=== PATIENT | female | born 1960 | race Caucasian/White ===

== ENCOUNTER 2020-06-29 15:58 | Emergency (ER) | payer MEDICAID ==
[2020-06-29] MEDS ORDERED: LORazepam 0.5 MG Tab PO ONE (16:53)
--- NOTE | 2020-06-29 17:22 | EDM.PDOCBH ---
ED HPI GENERAL MEDICAL PROBLEM - General Chief Complaint: Behavioral/Psych Stated Complaint: [facility] Time Seen by Provider: 06/29/20 16:07 Source of Information: Reports: Patient History Limitations: Reports: No Limitations - History of Present Illness INITIAL COMMENTS - FREE TEXT/NARRATIVE: Pt is a 60 year old female who presents to the ER with c/o weakness and SOB. She was diagnosed with COVID yesterday and states that she has been in quarantine at [facility] since yesterday morning. She has had a mild cough and some nasal congestion for the last week. Her also has COVID and is currently hospitalized which is causing the patient increased anxiety. Pt expresses feeling "ignored and like she is not getting enough care" at [facility]. She states "I can't handle those 4 paulson anymore". She has concerns about her diabetes and the type of food she is receiving; however, this is not a new concern for her. She states that after being diagnosed with COVID she is "treated worse than an animal". She states that she opened her door to ask for some hot chocolate, and was yelled at to shut her door and that administration was send to her room. Prior to coming to ER, pt describes feeling like hear heart was beating fast and that she couldn't catch her breath. She states that she had to get out of her room and that coming to the ER was the only way she could get out. Headache Pain Score (Numeric/FACES): 3 - Related Data Allergies Allergy/AdvReac Type Severity Reaction Status Date / Time No Known Allergies Allergy Verified 06/29/20 17:37 Home Meds: Home Meds Alpha Lipoic Acid 600 mg PO DAILY 06/29/20 [History] Aspirin [Low Dose Aspirin EC] 81 mg PO DAILY 06/29/20 [History] Calcium Carbonate [Calcium] 1,200 mg PO DAILY 06/29/20 [History] Empagliflozin [Jardiance] 25 mg PO DAILY 06/29/20 [History] Fluticasone Propionate [Flonase] 16 gm .XX DAILY #1 bottle 06/29/20 [Rx] Glucosamine/D3/Boswellia Ely [Osteo Bi-Flex Caplet] 1 tab PO DAILY 06/29/20 [History] Iron 18 mg PO DAILY 06/29/20 [History] LORazepam [Ativan] 0.5 mg PO Q8H PRN #15 tab 06/29/20 [Rx] Liraglutide [Victoza] 1.2 mg SQ DAILY 06/29/20 [History] Losartan [Cozaar] 25 mg PO DAILY 06/29/20 [History] Magnesium 250 mg PO DAILY 06/29/20 [History] Multivitamin with Minerals [One Daily Plus Minerals] 1 tab PO DAILY 06/29/20 [History] Rosuvastatin [Crestor] 20 mg PO DAILY 06/29/20 [History] Sour Sears Extract [Tart Sears Extract] 1,200 mg PO DAILY 06/29/20 [History] metFORMIN HCl [Metformin HCl ER] 2,000 mg PO DAILY 06/29/20 [History] ED ROS GENERAL - Review of Systems Review Of Systems: See Below Constitutional: Reports: Fatigue. Denies: Fever, Chills, Weakness HEENT: Reports: No Symptoms Respiratory: Reports: Shortness of Breath. Denies: Wheezing, Cough Cardiovascular: Reports: Palpitations. Denies: Chest Pain, Dyspnea on Exertion, Lightheadedness, Syncope Endocrine: Reports: No Symptoms GI/Abdominal: Reports: No Symptoms : Reports: No Symptoms Musculoskeletal: Reports: No Symptoms Skin: Reports: No Symptoms Neurological: Reports: No Symptoms Psychiatric: Reports: Anxiety, Depression Hematologic/Lymphatic: Reports: No Symptoms Immunologic: Reports: No Symptoms ED EXAM, BEHAVIORAL HEALTH - Physical Exam Exam: See Below Exam Limited By: No Limitations General Appearance: Alert, Anxious, Other (tearful) Eye Exam: Bilateral Eye: Normal Inspection, PERRL Respiratory/Chest: No Respiratory Distress, Lungs Clear, Normal Breath Sounds, No Accessory Muscle Use, Chest Non-Tender Cardiovascular: Normal Peripheral Pulses, Regular Rate, Rhythm, No Edema, No Gallop, No JVD, No Murmur, No Rub GI/Abdominal: Normal Bowel Sounds, Soft, Non-Tender, No Organomegaly, No Distention, No Abnormal Bruit, No Mass Neurological: Alert, Normal Mood/Affect, CN II-XII Intact, Normal Cognition, Normal Gait, Normal Reflexes, No Motor/Sensory Deficits, Oriented x 3 Psychiatric: Alert, Normal Cognition, Oriented, Tearful, Other (anxious) Skin Exam: Warm, Dry, Intact, Normal color, No rash EKG INTERPRETATION EKG Date: 06/29/20 Time: 17:43 Rhythm: NSR Rate (Beats/Min): 94 [place]: Normal P-Wave: Present QRS: Normal ST-T: Normal QT: Normal Comparison: NA - No Prior EKG COURSE, BEHAVIORAL HEALTH COMP - Course Vital Signs: Last Vital Signs Temp 98.1 F 06/29/20 16:09 Pulse 98 06/29/20 16:09 Resp 18 06/29/20 16:09 BP 155/105 H 06/29/20 16:09 Pulse Ox 100 06/29/20 16:09 Orders, Labs, Meds: Laboratory Tests 06/29/20 06/29/20 06/29/20 Range/Units 17:12 17:12 17:12 WBC 5.60 (3.98-10.04) K/mm3 RBC 4.37 (3.98-5.22) M/mm3 Hgb 13.1 (11.2-15.7) gm/dl Hct 38.2 (34.1-44.9) % MCV 87.4 (79.4-94.8) fl MCH 30.0 (25.6-32.2) pg MCHC 34.3 (32.2-35.5) g/dl RDW Std Deviation 40.4 (36.4-46.3) fL Plt Count 267 (182-369) K/mm3 MPV 9.3 L (9.4-12.3) fl Neut % (Auto) 56.9 (34.0-71.1) % Lymph % (Auto) 30.7 (19.3-51.7) % [place] % (Auto) 9.6 (4.7-12.5) % Eos % (Auto) 2.3 (0.7-5.8) Baso % (Auto) 0.5 (0.1-1.2) % Neut # (Auto) 3.18 (1.56-6.13) K/mm3 Lymph # (Auto) 1.72 (1.18-3.74) K/mm3 [place] # (Auto) 0.54 H (0.24-0.36) K/mm3 Eos # (Auto) 0.13 (0.04-0.36) K/mm3 Baso # (Auto) 0.03 (0.01-0.08) K/mm3 Sodium 141 (136-145) mEq/L Potassium 4.1 (3.5-5.1) mEq/L Chloride 102 (98-107) mEq/L Carbon Dioxide 22 (21-32) mEq/L Anion Gap 21.1 H (5-15) BUN 14 (7-18) mg/dL Creatinine 1.2 H (0.55-1.02) mg/dL Est Cr Clr Drug Dosing TNP Estimated GFR (MDRD) 46 (>60) mL/min BUN/Creatinine Ratio 11.7 L (14-18) Glucose 182 H (74-106) mg/dL Calcium 9.4 (8.5-10.1) mg/dL Total Bilirubin 0.5 (0.2-1.0) mg/dL AST 14 L (15-37) U/L ALT 28 (14-59) U/L Alkaline Phosphatase 76 (46-116) U/L Troponin I < 0.017 (0.00-0.056) ng/mL C-Reactive Protein 0.3 (<1.0) mg/dL Total Protein 7.4 (6.4-8.2) g/dl Albumin 4.3 (3.4-5.0) g/dl Globulin 3.1 gm/dL Albumin/Globulin Ratio 1.4 (1-2) Medications Discontinued Medications Generic Name Dose Route Start Last Admin Trade Name Freq PRN Reason Stop Dose Admin Sodium Chloride 1,000 mls @ 999 mls/hr 06/29/20 17:56 06/29/20 18:09 Normal Saline IV 06/29/20 18:56 999 mls/hr NOW STA Administration Lorazepam 0.5 mg 06/29/20 16:53 06/29/20 17:10 Ativan PO 06/29/20 16:54 0.5 mg ONETIME ONE Administration Discharge vs Psych Eval/Treatment:: Pt is a 60 year old female who presents to the ER with c/o weakness and SOB. Patient is very anxious and tearful. She describes feeling trapped in her room. This is being exacerbated by her being hospitalized and her being alone. Discussed with patient that her feeling of palpitations and SOB are likely related to her high anxiety. After a long discussion with her, I explained that we will complete a medical workup including blood work, chest xray, and an EKG and if this is found to be normal, I will call and speak with the nursing staff at [facility] with regard to her concerns and see if they can work on a plan to get her more assistance and out of her room on occasion. Pt feels that if she could get out of her room a few times per day she would do much better. She did agree to taking a dose of Ativan now to help calm her. 06/29/20 18:22 Hematology was significant for anion gap elevated at 21.1, creatinine 1.2, glucose 182. Troponin and CRP were both negative. EKG was negative for any acute ischemia. Chest x-ray was found to be normal. Patient is much more calm after the Ativan. States that she does feel much more relaxed and less anxious. I did call and speak with the nurse at [facility], regarding patients concerns. Requested that if at all possible, pt he allowed to go outside a few times a day to help with her anxiety and feeling of being locked up. She stated that this may be able to be arranged and that they will work on coming up with a plan. I also discussed the patient's concerns regarding the food and she will work on a plan with regards to this. Pt's lab showed that she is dehydated; th erefore, I have ordered a 500 ml bolus of NS. Discussed with patient that communication is important and that if she is feeling anxious or that she needs extra help, she should make the nurses aware of her concerns. I will also write for a short prescription for Ativan to help her get through this time. She questioned if there is something that will help with her nasal congestion. I will recommend that she start Flonase twice daily. She is in agreement with this plan and expressed gratitude for our help. Discharge instrunctions as documented. Departure - Departure Time of Disposition: 18:29 Disposition: Home, Self-Care 01 Condition: Good Clinical Impression: COVID-19, Anxiety - Discharge Information *PRESCRIPTION DRUG MONITORING PROGRAM REVIEWED*: Yes *COPY OF PRESCRIPTION DRUG MONITORING REPORT IN PATIENT EVERARDO: No Prescriptions: LORazepam [Ativan] 0.5 mg PO Q8H PRN #15 tab PRN Reason: Anxiety Fluticasone Propionate [Flonase] 16 gm .XX DAILY #1 bottle Instructions: COVID-19 Frequently Asked Questions, Living With Anxiety Referrals: Sofya Fleming [facility] [Primary Care Provider] - Forms: ED Department Discharge Additional Instructions: You were seen in the ER this evening for evaluation regarding feeling short of breath, having heart palpations, and being anxious. Your workup included bloodwork, a chest xray, and an EKG of your heart. Your workup was overall normal, with the exception of you being slightly dehydrated. While in ER, your received IB fluids and a dose of Ativan to help you relax. We did also call and speak with the staff at [facility] regarding your concerns and they are going to work on a plan to help with your anxiety. Recommend that you increase your fluid intake to ensure you stay adequately hydrated. A prescription for Ativan for anxiety and Flonase for nasal congestion has been send to [facility]. Take these medications as prescribed. Recommend that once your quarentine for COVID is complete you follow-up with your primary care provider to discuss your test strips for your diabetes as well as the potential of getting on a daily medication for your anxiety. Return to the ER for any new or worsening symptoms of concern. Sepsis Event Note (ED) - Evaluation Sepsis Screening Result: No Definite Risk
[2020-06-29] MEDS ORDERED: Sodium Chloride 0.9% 1,000 ML IV STA (17:56)
--- NOTE | 2020-06-29 18:04 | CR ---
Chest: Portable view of the chest was obtained. Comparison: No prior chest imaging is available. Heart size and mediastinum are normal. Lungs are clear with no acute parenchymal change. Bony structures are grossly intact. Impression: 1. Nothing acute is appreciated on portable chest x-ray. Diagnostic code #1 This report was dictated in MDT
== END 2020-06-29 19:00 | disposition home or self-care (01) ==
LOC: JD.ED 15:58
DX: U07.1 COVID-19 (principal); F41.9 Anxiety disorder, unspecified; E86.0 Dehydration; E11.9 Type 2 diabetes mellitus without complications; Z79.82 Long term (current) use of aspirin
CPT/HCPCS: 36415; 71045; 80053; 84484; 85025; 86140; 93005; 99285; A9270; J7030

== ENCOUNTER 2021-12-10 14:47 | Inpatient (IN) | payer MEDICARE, MEDICAID ==
[2021-12-10] MEDS ORDERED: Sodium Chloride 0.9% 10 ML Syringe FLUSH PRN (15:19)
[2021-12-10] MEDS ORDERED: Sodium Chloride 0.9% 10 ML Syringe FLUSH ONE (16:14)
[2021-12-10] MEDS ORDERED: Iopamidol 755 Mg/ML 100 ML Bottle IVPUSH ONE (16:14)
[2021-12-10] MEDS ORDERED: Sodium Chloride 0.9% 100 ML IV SCH (16:15)
[2021-12-10 16:23] LABS: CORONAVIRUS COVID-19 NAA NEGATIVE (NEGATIVE)
[2021-12-10] MEDS ORDERED: Acetaminophen/HYDROcodone 325-5 MG Tab PO PRN (18:08)
[2021-12-10] MEDS ORDERED: guaiFENesin 100 MG/5 ML Soln 10 ML UD Cup PO PRN (18:25)
[2021-12-10] MEDS ORDERED: Polyethylene Glycol 3350 Powder 17 GM Packet PO PRN (18:25)
[2021-12-10] MEDS ORDERED: Hydrocortisone 1% Crm 30 GM Tube TOP PRN (18:25)
[2021-12-10] MEDS ORDERED: LORazepam 0.5 MG Tab PO PRN (18:25)
[2021-12-10] MEDS ORDERED: Acetaminophen 325 MG Tab PO PRN (18:25)
[2021-12-10] MEDS: Ampicillin/Sulbactam Na 3 GM in Sodium Chloride 0.9% 100 ML IV SCH (20:00)
[2021-12-10] MEDS: Clindamycin Phosphate in D5W 900 MG in Premix Bag 1 BAG IV SCH ×2 (21:09)
[2021-12-10] MEDS: busPIRone 15 MG Tab PO SCH (21:18)
[2021-12-10] MEDS: Rosuvastatin 10 MG Tab PO SCH (21:18)
[2021-12-11] MEDS: Ampicillin/Sulbactam Na 3 GM in Sodium Chloride 0.9% 100 ML IV SCH (02:21)
[2021-12-11] MEDS: Clindamycin Phosphate in D5W 900 MG in Premix Bag 1 BAG IV SCH ×6 (02:55→18:38)
[2021-12-11] MEDS: busPIRone 15 MG Tab PO SCH ×3 (08:36→20:03)
[2021-12-11] MEDS: Aspirin 81 MG Tab.EC PO SCH (08:36)
[2021-12-11] MEDS: Losartan 25 MG Tab PO SCH (08:37)
[2021-12-11] MEDS: Venlafaxine 75 MG Cap.ER PO SCH (08:37)
[2021-12-11] MEDS: Ferrous Sulfate 324 MG Tab.EC PO SCH (08:37)
[2021-12-11] MEDS: Enoxaparin 40 MG/0.4 ML Syringe SUBCUT SCH (08:38)
[2021-12-11] MEDS: Insulin Glargine,Hum.Rec.Anlog 100 UNIT/ML 3 ML Pen SUBCUT SCH (08:38)
[2021-12-11] MEDS: Empagliflozin 25 MG Tab PO SCH (08:38)
[2021-12-11] MEDS ORDERED: Non-Formulary Medication 1 Each (Multivitamin-Min/Iron/Fa/Vit K [Multi-Day Plus Minerals T PO SCH (09:00)
[2021-12-11] MEDS ORDERED: Non-Formulary Medication 1 Each (Magnesium Chloride [Magnesium] 64 MG Tablet) PO SCH (09:00)
[2021-12-11] MEDS ORDERED: Insulin Glargine,Human Rec. Analog 100 Units/ML 3 ML Pen SUBCUT SCH (09:00)
[2021-12-11] MEDS ORDERED: MAGNESIUM SULFATE TOP SCH (09:00)
[2021-12-11] MEDS ORDERED: Ampicillin/Sulbactam Na 3 GM in Sodium Chloride 0.9% 100 ML IV SCH (10:00)
[2021-12-11 10:34] LABS: HEMOGLOBIN A1C 9.1 %
[2021-12-11] MEDS: Insulin Lispro 100 Unit/ML 3 ML KwikPen SUBCUT SCH ×3 (12:09→20:19)
[2021-12-11] MEDS: Mirtazapine 15 MG Tab PO SCH (18:38)
[2021-12-11] MEDS: metFORMIN 500 MG Tab PO SCH (20:03)
[2021-12-11] MEDS: Rosuvastatin 10 MG Tab PO SCH (20:04)
[2021-12-11] MEDS: Montelukast 10 MG Tab PO SCH (20:04)
[2021-12-12] MEDS: Clindamycin Phosphate in D5W 900 MG in Premix Bag 1 BAG IV SCH ×6 (04:12→20:36)
[2021-12-12] MEDS: Insulin Lispro 100 Unit/ML 3 ML KwikPen SUBCUT SCH ×5 (08:00→20:30)
[2021-12-12] MEDS: Enoxaparin 40 MG/0.4 ML Syringe SUBCUT SCH (08:39)
[2021-12-12] MEDS: Insulin Glargine,Hum.Rec.Anlog 100 UNIT/ML 3 ML Pen SUBCUT SCH (08:39)
[2021-12-12] MEDS: Empagliflozin 25 MG Tab PO SCH (08:43)
[2021-12-12] MEDS: busPIRone 15 MG Tab PO SCH ×3 (08:43→20:24)
[2021-12-12] MEDS: metFORMIN 500 MG Tab PO SCH ×2 (08:43→20:24)
[2021-12-12] MEDS: Venlafaxine 75 MG Cap.ER PO SCH (08:43)
[2021-12-12] MEDS: Aspirin 81 MG Tab.EC PO SCH (08:43)
[2021-12-12] MEDS: Ferrous Sulfate 324 MG Tab.EC PO SCH (08:43)
[2021-12-12] MEDS: Losartan 25 MG Tab PO SCH (08:44)
[2021-12-12] MEDS: Mirtazapine 15 MG Tab PO SCH (18:13)
[2021-12-12] MEDS: Rosuvastatin 10 MG Tab PO SCH (20:24)
[2021-12-12] MEDS: Montelukast 10 MG Tab PO SCH (20:25)
[2021-12-13] MEDS: Clindamycin Phosphate in D5W 900 MG in Premix Bag 1 BAG IV SCH ×2 (03:38)
[2021-12-13] MEDS: Insulin Lispro 100 Unit/ML 3 ML KwikPen SUBCUT SCH ×4 (07:47→20:04)
[2021-12-13] MEDS: Insulin Glargine,Hum.Rec.Anlog 100 UNIT/ML 3 ML Pen SUBCUT SCH (09:35)
[2021-12-13] MEDS: metFORMIN 500 MG Tab PO SCH ×2 (09:36→20:03)
[2021-12-13] MEDS: Enoxaparin 40 MG/0.4 ML Syringe SUBCUT SCH (09:36)
[2021-12-13] MEDS: Losartan 25 MG Tab PO SCH (09:36)
[2021-12-13] MEDS: busPIRone 15 MG Tab PO SCH ×3 (09:37→20:03)
[2021-12-13] MEDS: Ferrous Sulfate 324 MG Tab.EC PO SCH (09:37)
[2021-12-13] MEDS: Aspirin 81 MG Tab.EC PO SCH (09:37)
[2021-12-13] MEDS: Venlafaxine 75 MG Cap.ER PO SCH (09:37)
[2021-12-13] MEDS: Empagliflozin 25 MG Tab PO SCH (09:37)
[2021-12-13] MEDS: Mirtazapine 15 MG Tab PO SCH (18:13)
[2021-12-13] MEDS: Rosuvastatin 10 MG Tab PO SCH (20:02)
[2021-12-13] MEDS: Montelukast 10 MG Tab PO SCH (20:03)
[2021-12-14] MEDS: Insulin Glargine,Hum.Rec.Anlog 100 UNIT/ML 3 ML Pen SUBCUT SCH (09:18)
[2021-12-14] MEDS: Losartan 25 MG Tab PO SCH (09:18)
[2021-12-14] MEDS: Venlafaxine 75 MG Cap.ER PO SCH (09:19)
[2021-12-14] MEDS: Aspirin 81 MG Tab.EC PO SCH (09:19)
[2021-12-14] MEDS: metFORMIN 500 MG Tab PO SCH (09:19)
[2021-12-14] MEDS: busPIRone 15 MG Tab PO SCH ×2 (09:19→12:22)
[2021-12-14] MEDS: Ferrous Sulfate 324 MG Tab.EC PO SCH (09:20)
[2021-12-14] MEDS: Enoxaparin 40 MG/0.4 ML Syringe SUBCUT SCH (09:20)
[2021-12-14] MEDS: Empagliflozin 25 MG Tab PO SCH (09:20)
[2021-12-14] MEDS: Insulin Lispro 100 Unit/ML 3 ML KwikPen SUBCUT SCH ×2 (09:26→12:22)
[2021-12-16] MEDS ORDERED: SEMAGLUTIDE 1 MG/0.75 ML SUBCUT SCH (09:00)
== END 2021-12-14 12:58 | DRG 638 ==
LOC: JD.ED 14:47 → JD.MS 17:20
PROVIDERS: ADMIT Pediatrics; ATTEND Pediatrics
DX: E11.628 Type 2 diabetes mellitus with other skin complications (principal); L03.116 Cellulitis of left lower limb; S92.422S Displaced fracture of distal phalanx of left great toe, sequela; W22.8XXS Striking against or struck by other objects, sequela; H35.373 Puckering of macula, bilateral; E78.00 Pure hypercholesterolemia, unspecified; E11.40 Type 2 diabetes mellitus with diabetic neuropathy, unspecified; F41.9 Anxiety disorder, unspecified; F32.A Depression, unspecified; Z86.16 Personal history of COVID-19; Z20.822 Contact with and (suspected) exposure to COVID-19; E78.5 Hyperlipidemia, unspecified; Z79.899 Other long term (current) drug therapy; E66.9 Obesity, unspecified; Z79.4 Long term (current) use of insulin; Z79.1 Long term (current) use of non-steroidal anti-inflammatories (NSAID); Z79.82 Long term (current) use of aspirin; Z68.32 Body mass index [BMI] 32.0-32.9, adult
CPT/HCPCS: 0240U; 36415; 73701-26-LT; 73701-LT; 80053; 80202; 82565; 82947; 83036; 83605; 85025; 85652; 86140; 87040; 87070; 87075; 87077; 87186; 87205; 87641; 96365; 97162-GP; 97597-GP; 99284-25; 99285; A9270-GY; J0295; J1650; J1815; J3370; J3490; J7050; Q9967; U0002